=== PATIENT | male | born 1960 | race Hispanic/Latino ===

== ENCOUNTER 2019-08-08 07:47 | Observation (INO) | payer OTHER ==
[~2019-08-08] VITALS: Ht 167.6 cm; Wt 80.1 kg
[2019-08-08] VITALS (11 sets, daily range): BP systolic 94–133; BP diastolic 61–82
[~2019-08-08 07:47] MED LIST: ATOR20TA65 PO; IMIP50TA6 PO; LISI-613 PO; MULT-1248 PO; XALA2.5OS OU
[2019-08-08 08:27] LABS: BASOPHILS % (AUTO) 1.1 % (0.0-5.0); EOSINOPHILS % (AUTO) 2.3 % (0.0-8.0); LYMPHOCYTES % (AUTO) 25.8 % (21.0-51.0); MEAN CORPUSCULAR HEMOGLOBIN 27.6 pg (27.0-33.0); MEAN CORPUSCULAR VOLUME 83.7 fL (79-99); MONOCYTES % (AUTO) 5.4 % (3.0-13.0); NEUTROPHILS % (AUTO) 65.4 % (40.0-77.0); PLATELET COUNT (AUTO) 380 K/uL (130-400); RED CELL DISTRIBUTION WIDTH 17.6 % (11.0-15.5); WHITE BLOOD COUNT (AUTO) 7.4 K/uL (4.8-10.8)
[2019-08-08 08:35] LABS: CREATININE 1.2 mg/dL (0.5-1.5); POTASSIUM 4.4 mmol/L (3.5-5.1)
[2019-08-08 08:37] LABS: INR 1.06 (0.85-1.15); PARTIAL THROMBOPLASTIN TIME 29.8 SEC (26.3-35.5); PROTHROMBIN TIME 11.1 SEC (9.6-11.6)
[2019-08-08] MEDS ORDERED: SODIUM BICARB 50MEQ 50ML VIAL ONE (09:53)
[2019-08-08] MEDS ORDERED: SERT50TA12 PO (10:18)
--- NOTE | 2019-08-08 10:23 | NUR ---
PT TRANSFERRED TO IR FOR U/S GUIDED LEFT RENAL BX. BY DR. MALDONADO.
--- NOTE | 2019-08-08 11:06 | NUR ---
U/S GUIDED BIOPSY LEFT KIDNEY PROCEDURE PERFORMED BY DR. EMERY. PUNCTURE SITE LEFT LOWER LUMBAR AREA. PATIENT TOLERATED PROCEDURE WELL. SPECIMEN X 3 COLLECTED. END OF PROCEDURE AT 1110. BIOPSY NEEDLE REMOVED AND DRESSING APPLIED. NO BLEEDING NOTED. REPORT GIVEN TO JULIO MELGAR. PT TRANSFERRED TO 4TH FLOOR RM 422 VIA BED. FAMILY AT PATIENT BEDSIDE. PT STABLE, AAO X 3, WITH NO C/O PAIN. SPECIMEN SENT TO LAB.
--- NOTE | 2019-08-08 11:54 | NUR ---
PT S/P U/S GUIDED RENAL BX OF THE LEFT. PER DR. MALDONADO BEDREST FOR 24HRS. NO BLEEDING TO LEFT LUMBAR AREA OF BX SITE.
[2019-08-08] MEDS ORDERED: ACETAMINOPHEN 325 MG TAB PO PRN (12:30)
[2019-08-08] MEDS ORDERED: LOSA50TA64 PO (19:37)
[2019-08-08] MEDS ORDERED: iron (19:37)
[2019-08-08] MEDS ORDERED: LEVO25TA54 PO (19:37)
[2019-08-08] MEDS ORDERED: TAMS-1 PO (19:37)
[2019-08-08] MEDS ORDERED: FOLI1TAB85 PO (19:37)
[2019-08-08] MEDS ORDERED: LEVO50TA11 PO (19:37)
[2019-08-08] MEDS ORDERED: ATOR40TA69 PO (19:37)
[2019-08-08] MEDS ORDERED: FURO40TA5 PO (19:37)
[2019-08-08] MEDS ORDERED: METO25TA6 PO (19:37)
[2019-08-08] MEDS ORDERED: [UNRECOGNIZED DRUG - CODE] (19:37)
[2019-08-08] MEDS ORDERED: SPIR25TA PO (19:37)
[2019-08-08] MEDS ORDERED: ASPI-555 PO (19:37)
[2019-08-08] MEDS: ATORVASTATIN CALCIUM 40 MG TABLET PO SCH (20:46)
[2019-08-08] MEDS: FUROSEMIDE 40 MG TABLET PO SCH (20:48)
[2019-08-09] VITALS (7 sets, daily range): BP systolic 109–161; BP diastolic 61–80
[2019-08-09 06:21] LABS: HEMATOCRIT 35.2 % (42-54); MEAN CORPUSCULAR HEMOGLOBIN 28.2 pg (27.0-33.0); MEAN CORPUSCULAR HGB CONC 33.7 g/dL (32.0-36.0); MEAN CORPUSCULAR VOLUME 83.8 fL (79-99); PLATELET COUNT (AUTO) 303 K/uL (130-400); RED BLOOD CELL COUNT(AUTO) 4.21 MIL/uL (4.50-6.20); WHITE BLOOD COUNT (AUTO) 7.5 K/uL (4.8-10.8)
[2019-08-09] MEDS: LEVOTHYROXINE 50 MCG TABLET PO SCH (06:25)
[2019-08-09] MEDS: SPIRONOLACTONE 25 MG TAB PO SCH (08:52)
[2019-08-09] MEDS: SERTRALINE HCL 50 MG TABLET PO SCH (08:56)
[2019-08-09] MEDS: FOLIC ACID/VITAMIN B COMP W-C 1 MG CAP/TAB PO SCH (08:56)
[2019-08-09] MEDS: FUROSEMIDE 40 MG TABLET PO SCH ×2 (08:56→20:50)
[2019-08-09] MEDS: TAMSULOSIN HCL 0.4 MG CAP.ER.24H PO SCH (08:56)
[2019-08-09] MEDS: ATORVASTATIN CALCIUM 40 MG TABLET PO SCH (20:49)
[2019-08-10 04:00] VITALS: BP 123/77
[2019-08-10 05:53] LABS: HEMATOCRIT 34.5 % (42-54); MEAN CORPUSCULAR HEMOGLOBIN 28.1 pg (27.0-33.0); MEAN CORPUSCULAR HGB CONC 33.9 g/dL (32.0-36.0); PLATELET COUNT (AUTO) 322 K/uL (130-400); RED BLOOD CELL COUNT(AUTO) 4.15 MIL/uL (4.50-6.20); RED CELL DISTRIBUTION WIDTH 17.8 % (11.0-15.5); WHITE BLOOD COUNT (AUTO) 6.2 K/uL (4.8-10.8)
[2019-08-10 05:57] LABS: EOSINOPHILS % (MANUAL) 4 % (1-6); LYMPHOCYTES % (MANUAL) 26 % (22-44); MAN.DIFF COMMENT-IMPRESSION MANUAL DIFFERENTIAL; MONOCYTES % (MANUAL) 8 % (2-9); PLATELET MORPHOLOGY COMMENT ADEQUATE; SEGMENTED NEUTROPHILS % 62 % (40-70)
[2019-08-10 06:03] LABS: CREATININE 1.1 mg/dL (0.5-1.5); POTASSIUM 3.6 mmol/L (3.5-5.1)
[2019-08-10] MEDS: LEVOTHYROXINE 50 MCG TABLET PO SCH (06:35)
[2019-08-10 08:00] VITALS: BP 116/78
[2019-08-10] MEDS: SERTRALINE HCL 50 MG TABLET PO SCH (08:18)
[2019-08-10] MEDS: TAMSULOSIN HCL 0.4 MG CAP.ER.24H PO SCH (08:19)
[2019-08-10] MEDS: FUROSEMIDE 40 MG TABLET PO SCH (08:19)
[2019-08-10] MEDS: SPIRONOLACTONE 25 MG TAB PO SCH (08:19)
[2019-08-10] MEDS: FOLIC ACID/VITAMIN B COMP W-C 1 MG CAP/TAB PO SCH (08:19)
--- NOTE | 2019-08-10 09:49 | NUR ---
DR. MORE ROUNDED STATED PT CAN BE D/C HOME WITH ALL HOME MEDS AWARE PT HAD NOT BEEN TAKING HIS BP MEDICAITONS BC HE HAD LOW BP S/P BIOPSY HE STATED, TO RESUME HOME MEDS ALL EVEN BP MEDICATIONS EXCEPT ASPIRIN 81 MG , TO RESUMETOMORROW
[2019-08-10 11:00] VITALS: BP 125/85
--- NOTE | 2019-08-10 11:55 | NUR ---
PT D/C HOME IV REMOVED CATHETER INTACT PT DENIES SOB OR CHEST PAIN
== END 2019-08-10 12:44 | disposition home or self-care (01) ==
LOC: 4DH 07:47 → EDSTATUS 10:30
PROVIDERS: ADMIT Internal Medicine Nephrology; ATTEND Internal Medicine Nephrology
DX: R80.9 Proteinuria, unspecified (principal); N04.9 Nephrotic syndrome with unspecified morphologic changes; I10 Essential (primary) hypertension; E78.5 Hyperlipidemia, unspecified; R60.1 Generalized edema; R53.81 Other malaise; E78.00 Pure hypercholesterolemia, unspecified; E07.9 Disorder of thyroid, unspecified; I25.10 Atherosclerotic heart disease of native coronary artery without angina pectoris; D64.9 Anemia, unspecified; I42.9 Cardiomyopathy, unspecified; Z95.1 Presence of aortocoronary bypass graft
CPT/HCPCS: 36415 ×3; 50200; 76770; 76942; 80048 ×3; 85025 ×2; 85027; 85610; 85730; A4510; G0378 ×53; J3490

== ENCOUNTER → 2019-11-27 | Outpatient (CLI) | payer OTHER ==
[~2019-11-27] VITALS: Ht 167.6 cm; Wt 81.2 kg
[~2019-11-27] MED LIST changes: +ASPI-555 PO; -ATOR20TA65 PO; +ATOR40TA69 PO; +FOLI1TAB85 PO; +FURO40TA5 PO; +LEVO50TA11 PO; +LOSA50TA64 PO; +METO25TA6 PO; +REGADENOSON 0.4 MG/5 ML PF SYG IVP SCH; +SERT50TA12 PO; +SPIR25TA PO; +TAMS-1 PO; +[UNRECOGNIZED DRUG - CODE]; +iron
== END | disposition home or self-care (01) ==
LOC: SHCH 08:32
PROVIDERS: ATTEND Internal Medicine Cardiovascular Disease
DX: I25.10 Atherosclerotic heart disease of native coronary artery without angina pectoris (principal)
CPT/HCPCS: 78452; 93017; 96374; A9500 ×2; J2785

== ENCOUNTER 2020-12-03 07:06 | Day surgery (SDC) | payer OTHER ==
[2020-12-02 09:56] VITALS: BP 132/77
[~2020-12-03] VITALS: Ht 167.6 cm; Wt 81.8 kg
[2020-12-03] VITALS (15 sets, daily range): BP systolic 116–132; BP diastolic 57–82
[~2020-12-03 07:06] MED LIST changes: -ASPI-555 PO; -ATOR40TA69 PO; +FLUO20TA29 PO; +FOLI1TAB61 PO; -FOLI1TAB85 PO; -FURO40TA5 PO; +HYDR25TA PO; -IMIP50TA6 PO; +ISOS30TA92 PO; -LEVO50TA11 PO; -LISI-613 PO; +LORA0.5T83 PO; +LOSA100T58 PO; -LOSA50TA64 PO; +METF-446 PO; -METO25TA6 PO; -MULT-1248 PO; +OLAN10TA20 PO; -REGADENOSON 0.4 MG/5 ML PF SYG IVP SCH; +ROSU10TA28 PO; -SERT50TA12 PO; -SPIR25TA PO; +TRAZADONE PO; -XALA2.5OS OU; -[UNRECOGNIZED DRUG - CODE]; -iron
[2020-12-03] MEDS ORDERED: SODIUM CHLORIDE 0.9% 1000ML 1,000 ML IV ONE (07:15)
[2020-12-03] MEDS ORDERED: CEFTRIAXONE SODIUM 1 GM ONE (07:15)
[2020-12-03] MEDS ORDERED: LIDOCAINE HCL MPF 1% 5ML VIAL ONE (08:05)
[2020-12-03] MEDS ORDERED: SUCCINYLCHOLINE 200MG/10ML SYR ONE (08:05)
[2020-12-03] MEDS ORDERED: ROCURONIUM 10MG/1ML SYR 10 MG/ML ML ONE (08:06)
[2020-12-03] MEDS ORDERED: PROPOFOL 10 MG/ML 20ML VIAL IV ONE (08:06)
[2020-12-03] MEDS ORDERED: FENTANYL CITRATE PF 50 MCG/1 ML 2ML VIAL ONE (08:06)
[2020-12-03] MEDS ORDERED: EPHEDRINE SULFATE 50 MG/ML AMPULE ONE (08:41)
[2020-12-03] MEDS ORDERED: OPIUM/BELLADONNA ALKALOIDS 1 EACH SUPP.RECT RC ONE (09:02)
[2020-12-03] MEDS ORDERED: PHENAZOPYRIDINE HCL 200 MG TABLET ONE (10:54)
== END 2020-12-03 11:45 | disposition home or self-care (01) ==
LOC: DAH 07:06
PROVIDERS: ATTEND Urology
DX: N40.1 Benign prostatic hyperplasia with lower urinary tract symptoms (principal); R39.14 Feeling of incomplete bladder emptying; E03.9 Hypothyroidism, unspecified; I11.0 Hypertensive heart disease with heart failure; I50.9 Heart failure, unspecified; E11.9 Type 2 diabetes mellitus without complications; I25.10 Atherosclerotic heart disease of native coronary artery without angina pectoris; K21.9 Gastro-esophageal reflux disease without esophagitis; F41.9 Anxiety disorder, unspecified; Z20.828 Contact with and (suspected) exposure to other viral communicable diseases; Z95.1 Presence of aortocoronary bypass graft; Z79.899 Other long term (current) drug therapy
CPT/HCPCS: 36415; 52648; 80048; 82948 ×2; A4215; A4221; A4223; A4340; A4358; A4600; A4663; A6260; C9803; J0330; J0696; J2704; J3010; J3490 ×2; J7030 ×3; U0003